=== PATIENT | female | born 1985 | race Caucasian/White ===

== ENCOUNTER 2018-11-11 01:36 | Emergency (ER) | payer OTHER ==
[~2018-11-11] VITALS: Ht 167.6 cm; Wt 62.0 kg
--- NOTE | 2018-11-11 01:52 | NUR ---
assessment made. PA at bedside. patient slipped and fell hitting head on the ground. c/o head pain ( occipital area ). + etoh. denies loc.
[2018-11-11] MEDS ORDERED: LEVO100T5 PO (01:56)
[2018-11-11] MEDS ORDERED: CITA20TA9 PO (01:56)
--- NOTE | 2018-11-11 02:07 | NUR ---
patient vomited x 1 moderate in amount[address] To CT scan.
--- NOTE | 2018-11-11 02:11 | NUR ---
pt in ct now.
--- NOTE | 2018-11-11 02:30 | NUR ---
pt back to room from ct
--- NOTE | 2018-11-11 02:45 | NUR ---
pt provided warm blanckets. pt's aox4. resps even and unlabored.
--- NOTE | 2018-11-11 03:11 | NUR ---
pt amb to br and back to room with steady gait.
[2018-11-11 04:21] VITALS: BP 91/40
--- NOTE | 2018-11-11 04:22 | NUR ---
PT GIVEN DC INSTRUCTIONS. PT AMB TO DC WITH PT'S . NO ACUTE DISTRESS AT DC.
== END 2018-11-11 04:23 | disposition home or self-care (01) ==
LOC: ED 02:32
DX: S09.8XXA Other specified injuries of head, initial encounter (principal); F10.129 Alcohol abuse with intoxication, unspecified; E03.9 Hypothyroidism, unspecified; W01.0XXA Fall on same level from slipping, tripping and stumbling without subsequent striking against object, initial encounter; Y93.89 Activity, other specified; Y92.009 Unspecified place in unspecified non-institutional (private) residence as the place of occurrence of the external cause; Y99.8 Other external cause status
CPT/HCPCS: 70450; 99284